=== PATIENT | female | born 1960 | race Caucasian/White ===

== ENCOUNTER 2016-06-01 05:53 | Emergency (ER) | payer MEDICAID ==
--- NOTE | 2016-06-01 06:22 | EDM.PDOC ---
ED HPI GI/ABDOMINAL - General Chief Complaint: Abdominal Pain Stated Complaint: PAIN ON RIGHT SIDE Time Seen by Provider: 06/01/16 06:12 - History of Present Illness INITIAL COMMENTS - FREE TEXT/NARRATIVE: 56-year-old female presents with right lower quadrant pain. She's had similar pain like this in the past she thought was perhaps due to a right ovarian cyst. Patient does significant history of cervical cancer she's thought to be in remission she's had radiation implants done. She was seen here this March for a similar complaint. She had an episode of vomiting one time last night. Denies significant abdominal discomfort no diarrhea no constipation. She denies burning or frequency with urination. She did have an ultrasound she recalls from her last visit. 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: Reports: , Other (see below) Other OB/BYN History: cervical cancer Musculoskeletal History: Reports: Arthritis, Other (see below) Other Musculoskeletal History: carpal tunnel Oncologic (Cancer) History: Reports: Cervix Social & Family History - Family History Family Medical History: Noncontributory - Tobacco Use Smoking Status *Q: Current Every Day Smoker Years of Tobacco use: 20 Packs/Tins Daily: 0.5 - Caffeine Use Caffeine Use: Reports: None - Recreational Drug Use Recreational Drug Use: No - Living Situation & Occupation Living situation: Reports: single Occupation: unemployed ED ROS GENERAL - Review of Systems Review Of Systems: See Below Constitutional: Reports: no symptoms. Denies: fever, chills HEENT: Reports: No symptoms Respiratory: Reports: No Symptoms Cardiovascular: Reports: No symptoms GI/Abdominal: Reports: Abdominal pain, Vomiting (Single episode). Denies: Constipation, Diarrhea, Nausea : Reports: no symptoms ED EXAM, GI/ABD - Physical Exam Exam: See Below Exam Limited By: No limitations General Appearance: alert, no apparent distress Head: atraumatic, normocephalic Neck: normal inspection. No: lymphadenopathy (L), lymphadenopathy (R) Respiratory/Chest: no respiratory distress, lungs clear, normal breath sounds Cardiovascular: regular rate, rhythm, no edema, no murmur GI/Abdominal: normal bowel sounds, soft, non tender, no organomegaly, no distention, other (Chaperoned exam: The patient does not have any discomfort over femoral triangle no evidence of hernia her pain seems to be anterior to the pubic symphysis just to the right side there is no palpable cyst or other structures present but this reproduces her pain.). No: guarding, rebound, rigidity Back Exam: normal inspection. No: CVA tenderness (L), CVA tenderness (R), muscle spasm, paraspinal tenderness, vertebral tenderness Extremities: normal inspection, normal range of motion, non-tender, no pedal edema, other (Attention was paid to her right hip no pain with internal or external rotation flexion or extension or movement against resistance.) Course - Vital Signs Last Recorded V/S: Last Vital Signs Temp 35.6 C 06/01/16 06:00 Pulse 100 06/01/16 06:00 Resp 16 06/01/16 06:00 BP 166/102 H 06/01/16 06:00 Pulse Ox 96 06/01/16 06:00 - Orders/Labs/Meds Orders: Active Orders 24 hr Category Date Time Status Ketorolac [Toradol] Med 06/01/16 07:30 Active 30 mg IVPUSH ONETIME Medication Orders Ketorolac Tromethamine (Toradol) 30 mg IVPUSH ONETIME EVELINA Last Admin: 06/01/16 07:23 Dose: 30 mg Labs: Laboratory Tests 06/01/16 Range/Units 06:45 Urine Color Yellow (Yellow) Urine Appearance Clear (Clear) Urine pH 6.0 (5.0-8.0) Ur Specific [place] > or = 1.030 (1.005-1.030) Urine Protein Trace H (Negative) Urine Glucose (UA) Negative (Negative) Urine Ketones Negative (Negative) Urine Occult Blood Negative (Negative) Urine Nitrite Negative (Negative) Urine Bilirubin Negative (Negative) Urine Urobilinogen 0.2 (0.2-1.0) Ur Leukocyte Esterase Negative (Negative) Urine RBC Not seen (0-5) /hpf Urine WBC 0-5 (0-5) /hpf Ur Epithelial Cells 0-5 (0-5) /hpf Urine Bacteria Few (FEW) /hpf Urine Mucus Many H (FEW) /hpf Meds: Medications Generic Name Dose Route Start Last Admin Trade Name Franci PRN Reason Stop Dose Admin Ketorolac Tromethamine 30 mg 06/01/16 07:30 06/01/16 07:23 Toradol IVPUSH 30 mg ONETIME EVELINA Administration Discontinued Medications Generic Name Dose Route Start Last Admin Trade Name Franci PRN Reason Stop Dose Admin Hydromorphone HCl 0.5 mg 06/01/16 07:17 Dilaudid IVPUSH 06/01/16 07:18 ONETIME ONE - Re-Assessments/Exams Free Text/Narrative Re-Assessment/Exam: 06/01/16 07:05 I suspect her pain is probably related to post radiation effect but it's hard to be certain I did review her ultrasound from her last visit but doesn't contribute much to this pain complex she did have a lot of endocervical fluid patient is not having problems with discharge at this point area she has followup with her oncologist in the near future. Her pain is acting very muscle skeletal however I cannot elicit it with internal or external rotation of the hip flexion extension of the leg abduction or adduction against resistance. 06/01/16 07:37 Urinalysis is unremarkable. Patient will be discharged she did receive a dose of Toradol here and will get a prescription for Percocet to use at home. Departure - Departure Time of Disposition: 07:06 Disposition: Home, Self-Care 01 Clinical Impression: Abdominal wall pain in right lower quadrant Prescriptions: Acetaminophen/oxyCODONE [Percocet 325-5 MG] 1 tab PO Q6H PRN #15 tablet PRN Reason: Pain Referrals: PCP,None [Primary Care Provider] - Forms: ED Department Discharge Additional Instructions: Return to emergency room with any questions or problems. Followup with your oncology doctors as scheduled. Return to the emergency room with any worsening discomfort or pain that is not improving
[2016-06-01] MEDS ORDERED: HYDROmorphone 0.5 MG/0.5 ML Syringe IVPUSH ONE (07:17)
[2016-06-01] MEDS ORDERED: Ketorolac 30 MG/ML SDV IVPUSH SCH (07:30)
[2016-06-01 07:56] VITALS: BP 153/91
== END 2016-06-01 07:53 | disposition home or self-care (01) ==
LOC: JD.ED 05:53
DX: R10.31 Right lower quadrant pain (principal); M19.90 Unspecified osteoarthritis, unspecified site; J45.909 Unspecified asthma, uncomplicated; F17.210 Nicotine dependence, cigarettes, uncomplicated
CPT/HCPCS: 81001; 96374; 99284; J1885

== ENCOUNTER 2016-06-26 10:29 | Emergency (ER) | payer MEDICAID ==
[2016-06-26 10:45] VITALS: BP 147/95
[2016-06-26] MEDS ORDERED: Ketorolac 60 MG/2 ML SDV IM ONE (11:27)
--- NOTE | 2016-06-26 11:28 | EDM.PDOC ---
ED HPI GENERAL MEDICAL PROBLEM - General Chief Complaint: Abdominal Pain Stated Complaint: ABDOMINAL PAIN Time Seen by Provider: 06/26/16 11:28 Source of Information: Reports: Patient History Limitations: Reports: No Limitations - History of Present Illness INITIAL COMMENTS - FREE TEXT/NARRATIVE: 56-year-old female presents for evaluation and treatment of pelvic pain. Reports that she's had pain on and off for several months. She has been seen in the ER on several occasions for her pelvic pain. Reports that this current episode of pain began on Sunday. Has progressively worsened. She has tried over- the-counter medications without any symptom relief. Patient reports that she was found to have a cyst on her right ovary on CT at her last doctor visit about 3 weeks ago. She states that this pain feels similar. Current symptoms include pelvic pain, lower abdominal pain, chills and an episode of vomiting. She denies any fevers, diarrhea, dysuria, hematuria, change in urine odor or color. Patient reports she has not slept for the past few days due to the pain. She did drive herself to the ER today. The patient has a past medical history of cervical cancer as well as ovarian cyst. She last saw her oncologist, Dr. Hernández, in [place] 3 weeks ago. Reports she had CT done which showed a cyst on the right side. 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: , Other (See Below) Other OB/BYN History: ovarian cysts Musculoskeletal History: Reports: Arthritis, Other (See Below) Other Musculoskeletal History: carpal tunnel Oncologic (Cancer) History: Reports: Cervix Social & Family History - Family History Family Medical History: Noncontributory - Tobacco Use Smoking Status *Q: Current Some Day Smoker Years of Tobacco use: 30 Packs/Tins Daily: 0.2 - Caffeine Use Caffeine Use: Reports: Soda, Tea - Recreational Drug Use Recreational Drug Use: No - Living Situation & Occupation Living situation: Reports: Single Occupation: Unemployed ED ROS GENERAL - Review of Systems Review Of Systems: See Below Constitutional: Reports: Chills. Denies: Fever GI/Abdominal: Reports: Abdominal Pain (lower abdomen), Nausea, Vomiting (x 1 episode). Denies: Diarrhea : Reports: Pain (pelvic pain). Denies: Dysuria, Hematuria ED EXAM, RENAL/ - Physical Exam Exam: See Below Exam Limited By: No Limitations General Appearance: Alert, WD/WN, No Apparent Distress Respiratory/Chest: No Respiratory Distress, Lungs Clear, Normal Breath Sounds Cardiovascular: Normal Peripheral Pulses, Regular Rate, Rhythm, No Murmur GI/Abdominal: Normal Bowel Sounds, Soft, Non-Tender Neurological: Alert, Oriented, Normal Cognition Psychiatric: Normal Affect, Normal Mood Skin Exam: Warm, Dry, Normal Color Course - Vital Signs Last Recorded V/S: Last Vital Signs Temp 36.4 C 06/26/16 10:40 Pulse 92 06/26/16 10:40 Resp 18 06/26/16 10:40 BP 147/95 H 06/26/16 10:40 Pulse Ox 97 06/26/16 10:40 - Orders/Labs/Meds Labs: Laboratory Tests 06/26/16 Range/Units 13:22 Urine Color Yellow (Yellow) Urine Appearance Slt cloudy H (Clear) Urine pH 7.0 (5.0-8.0) Ur Specific [place] 1.025 (1.005-1.030) Urine Protein 1+ H (Negative) Urine Glucose (UA) Negative (Negative) Urine Ketones Trace H (Negative) Urine Occult Blood Negative (Negative) Urine Nitrite Negative (Negative) Urine Bilirubin Negative (Negative) Urine Urobilinogen 0.2 (0.2-1.0) Ur Leukocyte Esterase Negative (Negative) Urine RBC Not seen (0-5) /hpf Urine WBC 0-5 (0-5) /hpf Ur Epithelial Cells 0-5 (0-5) /hpf Urine Bacteria Few (FEW) /hpf Urine Mucus Many H (FEW) /hpf Meds: Medications Discontinued Medications Generic Name Dose Route Start Last Admin Trade Name Freq PRN Reason Stop Dose Admin Ketorolac Tromethamine 60 mg 06/26/16 11:27 06/26/16 11:47 Toradol IM 06/26/16 11:28 60 mg ONETIME ONE Administration - Re-Assessments/Exams Free Text/Narrative Re-Assessment/Exam: 06/26/16 11:39 Toradol ordered for pain relief the patient drove herself here. We will put a urine sample. Will attempt to get records from [facility] to further evaluate the chief complaint. 06/30/16 14:12 The patient was unable to give us a urine sample which shows 1+ protein trace ketones. Negative for leukocytes and nitrates. We are unsuccessful in obtaining records from [place]. At this point patient would like to go home. I will give her some medication for pain. She is to follow up with her NON MORSE INTERCEPT TECHNICIAN provider and oncologist for further care. Discharge instructions as documented. Departure - Departure Time of Disposition: 14:17 Disposition: Home, Self-Care 01 Condition: fair Clinical Impression: Fibroid, uterine, Ovarian cyst - Discharge Information Prescriptions: Hydrocodone/Acetaminophen [[place] 5-325] 1 tab PO Q4H PRN #15 tablet PRN Reason: Pain (Severe 7-10) Instructions: Uterine Fibroids, [id number], Ovarian Cyst, [id number] Referrals: PCP,None [Primary Care Provider] - Forms: ED Department Discharge Additional Instructions: norco 1 tab PO every 6 hours prn severe pain. OTC ibuprofen 600mg every 6 hours prn pain. norco can be habit forming, I recommend you take as few of these as needed to control your pain. Do not drive or operate machinery within 12 hours of taking norco. Follow-up with Ob provider in 1-2 weeks so sooner if your require pain management of your symptoms. Rest. Please return to the ER should your symptoms change or worsen.
== END 2016-06-26 14:40 | disposition home or self-care (01) ==
LOC: JD.ED 10:29
DX: D25.9 Leiomyoma of uterus, unspecified (principal); N83.209 Unspecified ovarian cyst, unspecified side; F17.210 Nicotine dependence, cigarettes, uncomplicated; Z79.899 Other long term (current) drug therapy
CPT/HCPCS: 81001; 96372; 99284; J1885; 99283

== ENCOUNTER 2016-08-09 13:29 | Emergency (ER) | payer MEDICAID ==
[2016-08-09 14:14] VITALS: BP 157/97
--- NOTE | 2016-08-09 15:00 | EDM.PDOC ---
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 Patient reports she awoke this morning with the discomfort and it has progressively worsened throughout the day. Reports associated symptoms of increased urinary frequency and dysuria. She described the pain like" labor contractions". No fevers, chills, vaginal discharge, vaginal bleeding, vomiting , diarrhea or hematuria. Patient has not taken anything for her pain thus far. Patient has a past medical history of cervical cancer. Currently in remission. She sees an ob and oncologist in [place] every 3 months. Patient reports she has never had a UTI before. Onset: Today, Sudden Location: Reports: Pelvis Vaginal Pain Score (Numeric/FACES): 7 - Related Data Allergies Allergy/AdvReac Type Severity Reaction Status Date / Time No Known Allergies Allergy Verified 08/09/16 14:08 Home Meds: Home Meds Albuterol [IJD: Ventolin HFA] 1 puff INH .TWICE DAILY PRN 11/24/15 [History] Acetaminophen/oxyCODONE [Percocet 325-5 MG] 1 tab PO Q6H PRN #15 tablet [Rx] Hydrocodone/Acetaminophen [[place] 5-325] 1 tab PO Q4H PRN #15 tablet 06/26/16 [Rx ] Nitrofurantoin Monohyd/M-Cryst [Macrobid 100 mg Capsule] 100 mg PO BID #14 capsule 08/09/16 [Rx] Phenazopyridine HCl [Pyridium] 100 mg PO TID #9 tablet 08/09/16 [Rx] Past Medical History Respiratory History: Reports: Asthma 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: , Other (See Below) Other OB/BYN History: ovarian cysts Musculoskeletal History: Reports: Arthritis, Other (See Below) Other Musculoskeletal History: carpal tunnel Oncologic (Cancer) History: Reports: Cervix Social & Family History - Family History Family Medical History: Noncontributory - Tobacco Use Smoking Status *Q: Current Some Day Smoker Years of Tobacco use: 30 Packs/Tins Daily: 0.2 - Caffeine Use Caffeine Use: Reports: Soda, Tea - Recreational Drug Use Recreational Drug Use: No - Living Situation & Occupation Living situation: Reports: Single Occupation: Unemployed ED ROS GENERAL - Review of Systems Review Of Systems: See Below Constitutional: Denies: Fever GI/Abdominal: Reports: Abdominal Pain (suprapubic pain), Nausea. Denies: Constipation, Diarrhea, Vomiting : Reports: Dysuria, Pain (reports vaginal pain; ), Other (no vaginal bleeding or vaginal discharge). Denies: Hematuria ED EXAM, RENAL/ - Physical Exam Exam: See Below Exam Limited By: No Limitations General Appearance: Alert, WD/WN, Mild Distress Throat/Mouth: Normal Inspection, Normal Lips, No Airway Compromise Respiratory/Chest: No Respiratory Distress, Lungs Clear, Normal Breath Sounds Cardiovascular: Normal Peripheral Pulses, Regular Rate, Rhythm, No Murmur GI/Abdominal: Normal Bowel Sounds, Soft, Tender (suprapubic tenderness) Neurological: Alert, Oriented, Normal Cognition, Normal Gait Psychiatric: Normal Affect, Normal Mood Skin Exam: Warm, Dry, Normal Color Course - Vital Signs Last Recorded V/S: Last Vital Signs Temp 36.6 C 08/09/16 14:08 Pulse 99 08/09/16 14:08 Resp 16 08/09/16 14:08 BP 157/97 H 08/09/16 14:08 Pulse Ox 97 08/09/16 14:08 - Orders/Labs/Meds Labs: Laboratory Tests 08/09/16 Range/Units 14:49 Urine Color Yellow (Yellow) Urine Appearance Cloudy H (Clear) Urine pH 6.0 (5.0-8.0) Ur Specific [place] > or = 1.030 (1.005-1.030) Urine Protein 1+ H (Negative) Urine Glucose (UA) Negative (Negative) Urine Ketones Negative (Negative) Urine Occult Blood 2+ H (Negative) Urine Nitrite Negative (Negative) Urine Bilirubin Negative (Negative) Urine Urobilinogen 0.2 (0.2-1.0) Ur Leukocyte Esterase Negative (Negative) Urine RBC 0-5 (0-5) /hpf Urine WBC 0-5 (0-5) /hpf Ur Epithelial Cells Not seen (0-5) /hpf Amorphous Sediment Many H (NOT SEEN) /hpf Urine Bacteria Few (FEW) /hpf Urine Mucus Not seen (FEW) /hpf Meds: Medications Discontinued Medications Generic Name Dose Route Start Last Admin Trade Name Franci PRN Reason Stop Dose Admin Ketorolac Tromethamine 60 mg 08/09/16 15:28 08/09/16 15:41 Toradol IM 08/09/16 15:29 60 mg ONETIME ONE Administration - Re-Assessments/Exams Free Text/Narrative Re-Assessment/Exam: 08/09/16 16:00 I reviewed the UA with the patient. Pain is worsening so I ordered IM toradol. UA is not impressive for UTI however the patient is symptomatic. Urine sent for culture. Will treat for UTI based on symptoms. Discharge instructions as documented. Departure - Departure Time of Disposition: 16:01 Disposition: Home, Self-Care 01 Condition: Fair Clinical Impression: Urinary tract infection - Discharge Information Prescriptions: Nitrofurantoin Monohyd/M-Cryst [Macrobid 100 mg Capsule] 100 mg PO BID #14 capsule Phenazopyridine HCl [Pyridium] 100 mg PO TID #9 tablet Instructions: Urinary Tract Infection, Adult Referrals: PCP,Not In Area [Primary Care Provider] - Forms: ED Department Discharge Additional Instructions: Take the Macrobid as prescribed. 1 tab twice a day for 7 days. Pyridium 1 tab 3 times a day for 3 days. This is for your pain with urination. take [id number] Tylenol or Motrin as needed. Rest. make sure your are drinking plenty of fluids. Follow-up with family medicine if you're not better in 1 week. Please return the ER if your symptoms change or worsen.
[2016-08-09] MEDS ORDERED: Ketorolac 60 MG/2 ML SDV IM ONE (15:28)
== END 2016-08-09 16:20 | disposition home or self-care (01) ==
LOC: JD.ED 13:29
DX: N39.0 Urinary tract infection, site not specified (principal); F17.210 Nicotine dependence, cigarettes, uncomplicated; M19.90 Unspecified osteoarthritis, unspecified site; J45.909 Unspecified asthma, uncomplicated; Z85.41 Personal history of malignant neoplasm of cervix uteri; Z79.899 Other long term (current) drug therapy
CPT/HCPCS: 81001; 87086; 96372; 99283; J1885

== ENCOUNTER 2017-05-09 12:05 | Emergency (ER) | payer MEDICAID ==
[2017-05-09 12:13] VITALS: BP 151/95
[2017-05-09] MEDS ORDERED: Aspirin 81 MG Tab.Chew PO ONE (12:32)
[2017-05-09] MEDS ORDERED: Sodium Chloride 0.9% 10 ML Syringe FLUSH PRN (12:32)
--- NOTE | 2017-05-09 13:33 | CR ---
Chest: Portable view of the chest was obtained. Comparison: No previous chest x-ray. Heart is slightly enlarged. Tortuous thoracic aorta is seen. Lungs are clear. Bony structures are grossly intact. Impression: 1. Slight cardiomegaly. Nothing acute is seen on portable chest x-ray. Diagnostic code #2
--- NOTE | 2017-05-09 13:56 | EDM.PDOC ---
ED HPI GENERAL MEDICAL PROBLEM - General Chief Complaint: Chest Pain Stated Complaint: CHEST PAIN Time Seen by Provider: 05/09/17 12:26 Source of Information: Reports: Patient History Limitations: Reports: No Limitations - History of Present Illness INITIAL COMMENTS - FREE TEXT/NARRATIVE: 57-year-old female presents for evaluation and treatment of chest pain. Patient identifies chest pain in the center of her chest that radiates into her middle back. States it started about 30 minutes prior to arrival in the ER. States that it was more of a pressure. Currently pain is 3 out of 10. At its worst pain was a 6 out of 10. No treatments prior to arrival in the ER. No pain radiating to the neck or arms. She denies any nausea, vomiting, fevers, chills, lightheadedness, dizziness, shortness of breath, syncope, pain or swelling in her legs. Patient reports that she has been ill with the cold recently, cough is improving. Patient is a current every day smoker. Smokes about half pack a day and has done so for the last 20 years. No history of diabetes. No cardiac history including no previous MIs or arrhythmias. 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: , Other (See Below) Other OB/BYN History: ovarian cysts Musculoskeletal History: Reports: Arthritis, Other (See Below) Other Musculoskeletal History: carpal tunnel Oncologic (Cancer) History: Reports: Cervix Social & Family History - Family History Family Medical History: Noncontributory - Tobacco Use Smoking Status *Q: Current Every Day Smoker Years of Tobacco use: 25 Packs/Tins Daily: 0.5 - Caffeine Use Caffeine Use: Reports: Coffee - Recreational Drug Use Recreational Drug Use: Yes Drug Use in Last 12 Months: Yes Recreational Drug Type: Reports: Marijuana/Hashish Recreational Drug Use Frequency: Monthly - Living Situation & Occupation Living situation: Reports: Single Occupation: Unemployed ED ROS GENERAL - Review of Systems Review Of Systems: See Below Constitutional: Denies: Fever, Chills HEENT: Denies: Ear Pain, Throat Pain Respiratory: Reports: Cough. Denies: Shortness of Breath Cardiovascular: Reports: Chest Pain. Denies: Edema, Lightheadedness, Syncope GI/Abdominal: Denies: Abdominal Pain, Nausea, Vomiting Musculoskeletal: Reports: Back Pain. Denies: Neck Pain, Arm Pain Neurological: Denies: Syncope ED EXAM, GENERAL - Physical Exam Exam: See Below Exam Limited By: No Limitations General Appearance: Alert, WD/WN, No Apparent Distress Eye Exam: Bilateral Eye: Normal Inspection Ears: Normal External Exam Nose: Normal Inspection Throat/Mouth: Normal Inspection, Normal Lips, Normal Voice, No Airway Compromise Respiratory/Chest: No Respiratory Distress, Lungs Clear, Normal Breath Sounds Cardiovascular: Normal Peripheral Pulses, Regular Rate, Rhythm, No Murmur GI/Abdominal: Soft, Non-Tender Neurological: Alert, Oriented, Normal Cognition Psychiatric: Normal Affect, Normal Mood Skin Exam: Warm, Dry, Normal Color EKG INTERPRETATION EKG Date: 05/09/17 Time: 12:15 Rhythm: NSR Rate (Beats/Min): 80 [place]: Normal P-Wave: Present QRS: Normal ST-T: Normal QT: Normal EKG Interpretation Comments: NSR at 80 bpm. No acute changes. Reviewed by myself and Dr. Guzman. Course - Vital Signs Last Recorded V/S: Last Vital Signs Temp 36.2 C 05/09/17 12:09 Pulse 83 05/09/17 12:09 Resp 18 05/09/17 12:09 BP 151/95 H 05/09/17 12:09 Pulse Ox 98 05/09/17 12:09 - Orders/Labs/Meds Orders: Active Orders 24 hr Category Date Time Status Cardiac Monitoring [RC] . DIRECTED Care 05/09/17 12:32 Active EKG 12 Lead [EKG Documentation Completion] [RC] STAT Care 05/09/17 12:36 Active Peripheral IV Care [RC] . DIRECTED Care 05/09/17 12:32 Active Peripheral IV Insertion Adult [OM.PC] Routine Oth 05/09/17 12:31 Ordered Labs: Laboratory Tests 05/09/17 05/09/17 05/09/17 Range/Units 12:15 12:15 12:15 WBC 5.06 (3.98-10.04) K/mm3 RBC 5.29 H (3.98-5.22) M/mm3 Hgb 15.0 (11.2-15.7) gm/L Hct 46.3 H (34.1-44.9) % MCV 87.5 (79.4-94.8) fl MCH 28.4 (25.6-32.2) pg MCHC 32.4 (32.2-35.5) g/dl RDW Std Deviation 45.0 (36.4-46.3) fL Plt Count 244 (182-369) K/mm3 MPV 9.2 L (9.4-12.3) fl Neut % (Auto) 62.0 (34.0-71.1) % Lymph % (Auto) 28.5 (19.3-51.7) % [place] % (Auto) 7.1 (4.7-12.5) % Eos % (Auto) 1.8 (0.7-5.8) Baso % (Auto) 0.4 (0.1-1.2) % Neut # (Auto) 3.14 (1.56-6.13) K/mm3 Lymph # (Auto) 1.44 (1.18-3.74) K/mm3 [place] # (Auto) 0.36 (0.24-0.36) K/mm3 Eos # (Auto) 0.09 (0.04-0.36) K/mm3 Baso # (Auto) 0.02 (0.01-0.08) K/mm3 PT 10.0 (8.0-13.0) SECONDS INR 0.94 APTT 31 (22-36) SECONDS Sodium 144 (136-145) mEq/L Potassium 3.9 (3.5-5.1) mEq/L Chloride 105 (98-107) mEq/L Carbon Dioxide 28 (21-32) mEq/L Anion Gap 14.9 (5-15) BUN 10 (7-18) mg/dL Creatinine 0.7 (0.55-1.02) mg/dL Est Cr Clr Drug Dosing 81.71 mL/min Estimated GFR (MDRD) > 60 (>60) mL/min BUN/Creatinine Ratio 14.3 (14-18) Glucose 96 (74-106) mg/dL Calcium 8.9 (8.5-10.1) mg/dL Total Bilirubin 0.2 (0.2-1.0) mg/dL AST 18 (15-37) U/L ALT 21 (14-59) U/L Alkaline Phosphatase 95 (46-116) U/L Troponin I < 0.017 (0.00-0.056) ng/mL Total Protein 7.2 (6.4-8.2) g/dl Albumin 3.5 (3.4-5.0) g/dl Globulin 3.7 gm/dL Albumin/Globulin Ratio 1.0 (1-2) Lipase 171 (73-393) U/L 05/09/17 Range/Units 15:01 WBC (3.98-10.04) K/mm3 RBC (3.98-5.22) M/mm3 Hgb (11.2-15.7) gm/L Hct (34.1-44.9) % MCV (79.4-94.8) fl MCH (25.6-32.2) pg MCHC (32.2-35.5) g/dl RDW Std Deviation (36.4-46.3) fL Plt Count (182-369) K/mm3 MPV (9.4-12.3) fl Neut % (Auto) (34.0-71.1) % Lymph % (Auto) (19.3-51.7) % [place] % (Auto) (4.7-12.5) % Eos % (Auto) (0.7-5.8) Baso % (Auto) (0.1-1.2) % Neut # (Auto) (1.56-6.13) K/mm3 Lymph # (Auto) (1.18-3.74) K/mm3 [place] # (Auto) (0.24-0.36) K/mm3 Eos # (Auto) (0.04-0.36) K/mm3 Baso # (Auto) (0.01-0.08) K/mm3 PT (8.0-13.0) SECONDS INR APTT (22-36) SECONDS Sodium (136-145) mEq/L Potassium (3.5-5.1) mEq/L Chloride (98-107) mEq/L Carbon Dioxide (21-32) mEq/L Anion Gap (5-15) BUN (7-18) mg/dL Creatinine (0.55-1.02) mg/dL Est Cr Clr Drug Dosing mL/min Estimated GFR (MDRD) (>60) mL/min BUN/Creatinine Ratio (14-18) Glucose (74-106) mg/dL Calcium (8.5-10.1) mg/dL Total Bilirubin (0.2-1.0) mg/dL AST (15-37) U/L ALT (14-59) U/L Alkaline Phosphatase (46-116) U/L Troponin I < 0.017 (0.00-0.056) ng/mL Total Protein (6.4-8.2) g/dl Albumin (3.4-5.0) g/dl Globulin gm/dL Albumin/Globulin Ratio (1-2) Lipase (73-393) U/L Meds: Medications Discontinued Medications Generic Name Dose Route Start Last Admin Trade Name Freq PRN Reason Stop Dose Admin Aspirin 324 mg 05/09/17 12:32 05/09/17 13:18 Aspirin PO 05/09/17 12:33 324 mg ONETIME ONE Administration Sodium Chloride 10 ml 05/09/17 12:32 05/09/17 13:19 Saline Flush FLUSH 10 ml ASDIRECTED PRN Administration Keep Vein Open - Radiology Interpretation Free Text/Narrative:: Chest: Portable view of the chest was obtained. Comparison: No previous chest x-ray. Heart is slightly enlarged. Tortuous thoracic aorta is seen. Lungs are clear. Bony structures are grossly intact. Impression: 1. Slight cardiomegaly. Nothing acute is seen on portable chest x-ray. - Re-Assessments/Exams Free Text/Narrative Re-Assessment/Exam: 05/09/17 14:29 Patient was offered something for pain upon arrival the ER but she declined. I reviewed the labs, imaging and EKG with the patient. Plan will be to repeat the troponin about one hour to do a 3 hour troponin and no will send her home if the trop remains normal. Patient is currently resting comfortably. Denies any current chest pain. 05/09/17 16:03 Repeat troponin is negative at less than 0.017. Patient denies any chest pain since entering the ER. She has I refilled her Ambian as well as her albuterol inhaler Will give 5 5 mg Ambien and albuterol inhaler. Instructed to follow-up with family medicine for further refills. Instructed to follow-up family medicine within 2 weeks for recheck us also discussed the stress test. Departure - Departure Time of Disposition: 16:04 Disposition: Home, Self-Care 01 Condition: Good Clinical Impression: Chest pain, atypical Prescriptions: Albuterol [IJD: Ventolin HFA] 2 puff INH .TWICE DAILY #18 gm Zolpidem Tartrate [Ambien] 5 mg PO BEDTIME PRN #10 tablet PRN Reason: Insomnia Instructions: Nonspecific Chest Pain, [id number] Referrals: PCP,None [Primary Care Provider] - Radha Spivey MD [Physician] - Forms: ED Department Discharge Additional Instructions: Take the Ambien as prescribed. 1 tab about an hour prior to bedtime as needed for insomnia. Albuterol 1-2 puffs every 4-6 hours as needed for shortness of breath. Rest. Follow-up with family medicine within 2 weeks for recheck of your symptoms also discussed a stress test. Recommend Dr. Spivey at the [facility]. Call [phone] to schedule with her. Please return to ER if your symptoms change or worsen. - My Orders Last 24 Hours: My Active Orders 05/09/17 12:31 Peripheral IV Insertion Adult [OM.PC] Routine 05/09/17 12:32 Cardiac Monitoring [RC] . DIRECTED Peripheral IV Care [RC] . DIRECTED 05/09/17 12:36 EKG 12 Lead [EKG Documentation Completion] [RC] STAT - Assessment/Plan Last 24 Hours: My Active Orders 05/09/17 12:31 Peripheral IV Insertion Adult [OM.PC] Routine 05/09/17 12:32 Cardiac Monitoring [RC] . DIRECTED Peripheral IV Care [RC] . DIRECTED 05/09/17 12:36 EKG 12 Lead [EKG Documentation Completion] [RC] STAT
== END 2017-05-09 16:46 | disposition home or self-care (01) ==
LOC: JD.ED 12:05
DX: R07.89 Other chest pain (principal); J45.909 Unspecified asthma, uncomplicated; F17.210 Nicotine dependence, cigarettes, uncomplicated; Z79.899 Other long term (current) drug therapy
CPT/HCPCS: 36415; 71045; 80053; 83690; 84484; 85025; 85610; 85730; 93005; 99285; A9270; J7050; 99283

== ENCOUNTER 2018-10-08 08:33 | Emergency (ER) | payer MEDICAID ==
[2018-10-08 08:53] VITALS: BP 145/90
--- NOTE | 2018-10-08 10:26 | EDM.PDOC ---
ED HPI GENERAL MEDICAL PROBLEM - General Chief Complaint: Abdominal Pain Stated Complaint: SHARP PAINS IN ABDOMEN Time Seen by Provider: 10/08/18 08:50 Source of Information: Reports: Patient History Limitations: Reports: No Limitations - History of Present Illness INITIAL COMMENTS - FREE TEXT/NARRATIVE: The patient presents with abdominal pain and nausea. The nausea has been an ongoing issue for about 6 months. She also has periumbilical abdominal pain that started yesterday. The pain comes and goes. She has no vomiting, diarrhea or dysuria. She has no fever or chills. Onset: Gradual Duration: Day(s): (Yesterday) Location: Reports: Abdomen Quality: Reports: Other (Cramping) Severity: Moderate Improves with: Reports: None Worsens with: Reports: None Associated Symptoms: Reports: No Other Symptoms Left Lower Abdominal Pain Score (Numeric/FACES): 7 - Related Data Allergies Allergy/AdvReac Type Severity Reaction Status Date / Time No Known Allergies Allergy Verified 10/08/18 08:53 Home Meds: Home Meds Albuterol [IJD: Ventolin HFA] 1 puff INH .TWICE DAILY PRN 11/24/15 [History] Ondansetron [Zofran ODT] 4 mg PO Q6H PRN #20 tab.dis 10/08/18 [Rx] Past Medical History HEENT History: Reports: None Cardiovascular History: Reports: None Respiratory History: Reports: Asthma Gastrointestinal History: Reports: None [employer]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 History: Reports: , Other (See Below) Other 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 History: ovarian cysts Musculoskeletal History: Reports: Arthritis, Other (See Below) Other Musculoskeletal History: carpal tunnel Neurological History: Reports: None Psychiatric History: Reports: None Endocrine/Metabolic History: Reports: None Hematologic History: Reports: None Oncologic (Cancer) History: Reports: Cervix Dermatologic History: Reports: None - Infectious Disease History Infectious Disease History: Reports: None - Past Surgical History HEENT Surgical History: Reports: None Other Female Surgeries/Procedures: rods placed for cervical cancer. Radiation Social & Family History - Family History Family Medical History: Noncontributory - Tobacco Use Smoking Status *Q: Current Every Day Smoker Years of Tobacco use: 18 Packs/Tins Daily: 0.5 - Caffeine Use Caffeine Use: Reports: Coffee, Soda - Recreational Drug Use Recreational Drug Use: No - Living Situation & Occupation Living situation: Reports: Single Occupation: Unemployed ED ROS GENERAL - Review of Systems Review Of Systems: See Below Constitutional: Reports: No Symptoms HEENT: Reports: No Symptoms Respiratory: Reports: No Symptoms Cardiovascular: Reports: No Symptoms Endocrine: Reports: No Symptoms GI/Abdominal: Reports: Abdominal Pain, Nausea. Denies: Diarrhea, Vomiting : Reports: No Symptoms Musculoskeletal: Reports: No Symptoms Skin: Reports: No Symptoms Neurological: Reports: No Symptoms ED EXAM, GI/ABD - Physical Exam Exam: See Below Exam Limited By: No Limitations General Appearance: Alert, No Apparent Distress Ears: Normal External Exam Nose: Normal Inspection Head: Atraumatic, Normocephalic Neck: Normal Inspection Respiratory/Chest: No Respiratory Distress, Lungs Clear, Normal Breath Sounds Cardiovascular: Regular Rate, Rhythm, No Edema, No Murmur GI/Abdominal Exam: Soft, Non-Tender, No Organomegaly, No Mass Back Exam: Normal Inspection Extremities: Normal Inspection Course - Vital Signs Last Recorded V/S: Last Vital Signs Temp 96.9 F 10/08/18 08:47 Pulse 101 H 10/08/18 08:47 Resp 18 10/08/18 08:47 BP 145/90 H 10/08/18 08:47 Pulse Ox 97 10/08/18 08:47 - Orders/Labs/Meds Orders: Active Orders 24 hr Category Date Time Status UA W/MICROSCOPIC [URIN] Stat Lab 10/08/18 10:00 Results Labs: Laboratory Tests 10/08/18 10/08/18 10/08/18 Range/Units 09:46 09:46 10:00 WBC 6.70 (3.98-10.04) K/mm3 RBC 5.30 H (3.98-5.22) M/mm3 Hgb 15.0 (11.2-15.7) gm/L Hct 45.9 H (34.1-44.9) % MCV 86.6 (79.4-94.8) fl MCH 28.3 (25.6-32.2) pg MCHC 32.7 (32.2-35.5) g/dl RDW Std Deviation 46.8 H (36.4-46.3) fL Plt Count 212 (182-369) K/mm3 MPV 9.3 L (9.4-12.3) fl Neut % (Auto) 70.9 (34.0-71.1) % Lymph % (Auto) 21.8 (19.3-51.7) % [place] % (Auto) 5.7 (4.7-12.5) % Eos % (Auto) 1.2 (0.7-5.8) Baso % (Auto) 0.3 (0.1-1.2) % Neut # (Auto) 4.75 (1.56-6.13) K/mm3 Lymph # (Auto) 1.46 (1.18-3.74) K/mm3 [place] # (Auto) 0.38 H (0.24-0.36) K/mm3 Eos # (Auto) 0.08 (0.04-0.36) K/mm3 Baso # (Auto) 0.02 (0.01-0.08) K/mm3 Sodium 138 (136-145) mEq/L Potassium 4.0 (3.5-5.1) mEq/L Chloride 103 (98-107) mEq/L Carbon Dioxide 27 (21-32) mEq/L Anion Gap 12.0 (5-15) BUN 13 (7-18) mg/dL Creatinine 0.7 (0.55-1.02) mg/dL Est Cr Clr Drug Dosing 80.75 mL/min Estimated GFR (MDRD) > 60 (>60) mL/min BUN/Creatinine Ratio 18.6 H (14-18) Glucose 112 H (74-106) mg/dL Calcium 8.3 L (8.5-10.1) mg/dL Total Bilirubin 0.3 (0.2-1.0) mg/dL AST 12 L (15-37) U/L ALT 23 (14-59) U/L Alkaline Phosphatase 96 (46-116) U/L Total Protein 6.9 (6.4-8.2) g/dl Albumin 3.1 L (3.4-5.0) g/dl Globulin 3.8 gm/dL Albumin/Globulin Ratio 0.8 L (1-2) Lipase 79 (73-393) U/L Urine Color Yellow (Yellow) Urine Appearance Clear (Clear) Urine pH 5.5 (5.0-8.0) Ur Specific [place] > or = 1.030 (1.005-1.030) Urine Protein Negative (Negative) Urine Glucose (UA) Negative (Negative) Urine Ketones Negative (Negative) Urine Occult Blood Negative (Negative) Urine Nitrite Negative (Negative) Urine Bilirubin Negative (Negative) Urine Urobilinogen 0.2 (0.2-1.0) Ur Leukocyte Esterase Negative (Negative) - Re-Assessments/Exams Free Text/Narrative Re-Assessment/Exam: 10/08/18 10:28 I ordered labs and a UA. Her CBC and CMP look good. His lipase is normal. His UA shows no UTI. 10/08/18 10:30 She had asked about chlamydia infection. She has no discharge or pelvic pain and she has not had intercourse for months. I doubt this is causing any problems. I will discharge her home. Departure - Departure Time of Disposition: 10:35 Disposition: Home, Self-Care 01 Condition: Good Clinical Impression: Gastroenteritis Abdominal pain Qualifiers: Abdominal location: generalized Qualified Code(s): R10.84 - Generalized abdominal pain - Discharge Information *PRESCRIPTION DRUG MONITORING PROGRAM REVIEWED*: No *COPY OF PRESCRIPTION DRUG MONITORING REPORT IN PATIENT PATTI: No Prescriptions: Ondansetron [Zofran ODT] 4 mg PO Q6H PRN #20 tab.dis PRN Reason: Nausea\vomiting Referrals: PCP,None [Primary Care Provider] - Melissa Laura PA-C [Physician Respiratory Care Instructor] - 1 Week Forms: ED Department Discharge, ED Return to Work/School Form Additional Instructions: Drink plenty of fluids. Take zofran every 6 hours as needed for nausea and vomiting. Take tylenol or motrin for any pain. Please return if you are worse. - My Orders Last 24 Hours: My Active Orders 10/08/18 10:00 UA W/MICROSCOPIC [URIN] Stat - Assessment/Plan Last 24 Hours: My Active Orders 10/08/18 10:00 UA W/MICROSCOPIC [URIN] Stat
== END 2018-10-08 10:55 | disposition home or self-care (01) ==
LOC: JD.ED 08:33
DX: K52.9 Noninfective gastroenteritis and colitis, unspecified (principal); J45.909 Unspecified asthma, uncomplicated; F17.210 Nicotine dependence, cigarettes, uncomplicated; Z79.899 Other long term (current) drug therapy
CPT/HCPCS: 36415; 80053; 81001; 83690; 85025; 99284

== ENCOUNTER 2018-10-10 11:16 | Emergency (ER) | payer MEDICAID ==
[2018-10-10] MEDS ORDERED: Ondansetron 4 MG/2 ML SDV IVPUSH ONE (11:24)
[2018-10-10] MEDS ORDERED: Sodium Chloride 0.9% 1,000 ML IV SCH (11:30)
--- NOTE | 2018-10-10 11:56 | EDM.PDOC ---
ED HPI GENERAL MEDICAL PROBLEM - General Chief Complaint: Gastrointestinal Problem Stated Complaint: CONTINUAL EMESIS SINCE LAST VISIT Time Seen by Provider: 10/10/18 11:56 - History of Present Illness INITIAL COMMENTS - FREE TEXT/NARRATIVE: 58-year-old female presents emergency room with nausea and abdominal pain. This is been going on for several days now. Patient was seen here couple of days ago started on Zofran this helps a little bit. She has some vomiting but minimal when she was seen here the other day she was having nausea but no vomiting. She denies any diarrhea or constipation last normal BM was yesterday. Denies fevers or chills but sometimes she may feel a little warm. Patient denies any burning or frequency with urination or any other urinary complaints. She has not noticed any bloody or dark stools. Abdomen Pain Score (Numeric/FACES): 6 - Related Data Allergies Allergy/AdvReac Type Severity Reaction Status Date / Time No Known Allergies Allergy Verified 10/10/18 11:51 Home Meds: Home Meds Albuterol [IJD: Ventolin HFA] 1 puff INH .TWICE DAILY PRN 11/24/15 [History] Ondansetron [Zofran ODT] 4 mg PO Q6H PRN #20 tab.dis 10/08/18 [Rx] Past Medical History HEENT History: Reports: None Cardiovascular History: Reports: None Respiratory History: Reports: Asthma Gastrointestinal History: Reports: None Genitourinary History: Reports: UTI, Recurrent CERTIFIED OPTICIAN History: Reports: , Other (See Below) Other CERTIFIED OPTICIAN History: ovarian cysts Musculoskeletal History: Reports: Arthritis, Other (See Below) Other Musculoskeletal History: carpal tunnel Neurological History: Reports: Headaches, Chronic Psychiatric History: Reports: None Endocrine/Metabolic History: Reports: None Hematologic History: Reports: None Immunologic History: Reports: Other (See Below) Other Immunologic History: chemotherapy in past, cervical cancer. Oncologic (Cancer) History: Reports: Cervix Dermatologic History: Reports: None - Infectious Disease History Infectious Disease History: Reports: Chicken Pox - Past Surgical History Other Female Surgeries/Procedures: rods placed for cervical cancer. Radiation Social & Family History - Family History Family Medical History: Noncontributory - Tobacco Use Smoking Status *Q: Current Every Day Smoker Years of Tobacco use: 20 Packs/Tins Daily: 0.5 - Caffeine Use Caffeine Use: Reports: Coffee, Soda - Recreational Drug Use Recreational Drug Use: No - Living Situation & Occupation Living situation: Reports: Single Occupation: Unemployed ED ROS GENERAL - Review of Systems Review Of Systems: See Below Constitutional: Reports: No Symptoms HEENT: Reports: No Symptoms Respiratory: Reports: No Symptoms, Other (She has asthma but this is doing well) Cardiovascular: Reports: No Symptoms Endocrine: Reports: No Symptoms GI/Abdominal: Reports: Abdominal Pain, Nausea, Vomiting. Denies: Constipation, Diarrhea : Reports: No Symptoms Musculoskeletal: Reports: No Symptoms Skin: Reports: No Symptoms Neurological: Reports: No Symptoms ED EXAM, GI/ABD - Physical Exam Exam: See Below Exam Limited By: No Limitations General Appearance: Alert, No Apparent Distress Head: Atraumatic, Normocephalic Neck: Normal Inspection, Supple, Non-Tender, Full Range of Motion Respiratory/Chest: No Respiratory Distress, Lungs Clear, Other (Slightly decreased breath sounds) Cardiovascular: Regular Rate, Rhythm, No Edema, No Murmur GI/Abdominal Exam: Normal Bowel Sounds, Soft, Other (On examination she's got diffuse tenderness in the entire abdomen except for the right lower quadrant no rigidity rebound or guarding noted he may have minimal to mild distention) Back Exam: Normal Inspection. No: CVA Tenderness (L), CVA Tenderness (R) Extremities: Normal Inspection, Non-Tender, No Pedal Edema Neurological: Alert, Oriented, Normal Cognition Course - Vital Signs Last Recorded V/S: Last Vital Signs Temp 36.1 C 10/10/18 11:23 Pulse 94 10/10/18 11:23 Resp 16 10/10/18 11:23 BP 154/87 H 10/10/18 11:23 Pulse Ox 94 L 10/10/18 11:23 - Orders/Labs/Meds Orders: Active Orders 24 hr Category Date Time Status Abdomen 2V AP Flat Upright [CR] Stat Exams 10/10/18 12:06 Taken Sodium Chloride 0.9% [Normal Saline] 1,000 ml Med 10/10/18 11:30 Active IV ASDIRECTED Medication Orders Sodium Chloride (Normal Saline) 1,000 mls @ 150 mls/hr IV ASDIRECTED EVELINA Last Admin: 10/10/18 12:50 Dose: 150 mls/hr Labs: Laboratory Tests 10/10/18 10/10/18 Range/Units 12:37 12:37 WBC 5.68 (3.98-10.04) K/mm3 RBC 5.35 H (3.98-5.22) M/mm3 Hgb 15.0 (11.2-15.7) gm/L Hct 46.8 H (34.1-44.9) % MCV 87.5 (79.4-94.8) fl MCH 28.0 (25.6-32.2) pg MCHC 32.1 L (32.2-35.5) g/dl RDW Std Deviation 47.2 H (36.4-46.3) fL Plt Count 229 (182-369) K/mm3 MPV 9.5 (9.4-12.3) fl Neut % (Auto) 69.6 (34.0-71.1) % Lymph % (Auto) 21.7 (19.3-51.7) % Dawson % (Auto) 6.2 (4.7-12.5) % Eos % (Auto) 1.9 (0.7-5.8) Baso % (Auto) 0.2 (0.1-1.2) % Neut # (Auto) 3.96 (1.56-6.13) K/mm3 Lymph # (Auto) 1.23 (1.18-3.74) K/mm3 Dawson # (Auto) 0.35 (0.24-0.36) K/mm3 Eos # (Auto) 0.11 (0.04-0.36) K/mm3 Baso # (Auto) 0.01 (0.01-0.08) K/mm3 Sodium 139 (136-145) mEq/L Potassium 4.7 (3.5-5.1) mEq/L Chloride 102 (98-107) mEq/L Carbon Dioxide 29 (21-32) mEq/L Anion Gap 12.7 (5-15) BUN 12 (7-18) mg/dL Creatinine 0.7 (0.55-1.02) mg/dL Est Cr Clr Drug Dosing 80.75 mL/min Estimated GFR (MDRD) > 60 (>60) mL/min BUN/Creatinine Ratio 17.1 (14-18) Glucose 116 H (74-106) mg/dL Calcium 8.9 (8.5-10.1) mg/dL Total Bilirubin 0.2 (0.2-1.0) mg/dL AST 13 L (15-37) U/L ALT 23 (14-59) U/L Alkaline Phosphatase 86 (46-116) U/L C-Reactive Protein 1.6 H* (<1.0) mg/dL Total Protein 6.9 (6.4-8.2) g/dl Albumin 3.2 L (3.4-5.0) g/dl Globulin 3.7 gm/dL Albumin/Globulin Ratio 0.9 L (1-2) Lipase 91 (73-393) U/L Meds: Medications Generic Name Dose Route Start Last Admin Trade Name Freq PRN Reason Stop Dose Admin Sodium Chloride 1,000 mls @ 150 mls/hr 10/10/18 11:30 10/10/18 12:50 Normal Saline IV 150 mls/hr ASDIRECTED EVELINA Administration Discontinued Medications Generic Name Dose Route Start Last Admin Trade Name Freq PRN Reason Stop Dose Admin Ondansetron HCl 4 mg 10/10/18 11:24 10/10/18 12:48 Zofran IVPUSH 10/10/18 11:25 4 mg ONETIME ONE Administration - Re-Assessments/Exams Free Text/Narrative Re-Assessment/Exam: 10/10/18 14:41 Laboratory evaluations really nondiagnostic KUB and upright were done pretty nonspecific she may have an increased stool pattern but she's been having regular BMs daily. We'll try a bottle of mag citrate and have her increase her stool softeners at home. We'll continue with the Zofran and see if the bowel treatment makes a difference in her the patient really would like to go home at this point. Did discuss CT evaluation of think it would be of low yield. The patient agrees and we will not pursue this at this point. Departure - Departure Time of Disposition: 14:42 Disposition: Home, Self-Care 01 Clinical Impression: Nausea & vomiting Abdominal pain Qualifiers: Abdominal location: generalized Qualified Code(s): R10.84 - Generalized abdominal pain - Discharge Information Referrals: PCP,None [Primary Care Provider] - Forms: ED Department Discharge Additional Instructions: Return to the emergency room with any questions problems worsening symptoms. Increase your stool softeners. Drink a bottle of mag citrate when he get home, it goes down better either Cold or served with ice. Follow-up in the clinic on Sunday if needed [phone] - My Orders Last 24 Hours: My Active Orders 10/10/18 11:30 Sodium Chloride 0.9% [Normal Saline] 1,000 ml IV ASDIRECTED 10/10/18 12:06 Abdomen 2V AP Flat Upright [CR] Stat - Assessment/Plan Last 24 Hours: My Active Orders 10/10/18 11:30 Sodium Chloride 0.9% [Normal Saline] 1,000 ml IV ASDIRECTED 10/10/18 12:06 Abdomen 2V AP Flat Upright [CR] Stat
[2018-10-10 14:59] VITALS: BP 124/73
--- NOTE | 2018-10-14 12:52 | CR ---
Abdomen: Supine and upright views of the abdomen were obtained. Comparison: No prior abdominal imaging. Two surgical clips are seen within the pelvis. Bowel gas pattern is normal. Calcification is noted within the left side of the pelvis most likely representing phlebolith. Bony structures are within normal limits. No free air is seen. Impression: 1. Nothing acute is seen on two-view abdominal x-ray. Diagnostic code #2
== END 2018-10-10 15:08 | disposition home or self-care (01) ==
LOC: JD.ED 11:16
DX: R10.84 Generalized abdominal pain (principal); R11.2 Nausea with vomiting, unspecified; J45.909 Unspecified asthma, uncomplicated; F17.210 Nicotine dependence, cigarettes, uncomplicated; Z79.899 Other long term (current) drug therapy
CPT/HCPCS: 36415; 74019; 80053; 83690; 85025; 86140; 96361; 96374; 99284; J2405; J7040

== ENCOUNTER 2021-11-25 01:01 | Inpatient (IN) | payer MEDICAID ==
[2021-11-25] MEDS ORDERED: HYDROmorphone 1 MG/ML Syringe IVPUSH STA (01:28)
[2021-11-25] MEDS ORDERED: Ondansetron 4 MG/2 ML SDV IVPUSH ONE (01:28)
[2021-11-25] MEDS ORDERED: Sodium Chloride 0.9% 1,000 ML IV SCH (01:30)
[2021-11-25] MEDS ORDERED: Iopamidol 612 MG/ML 100 ML Bottle IVPUSH ONE (01:42)
[2021-11-25] MEDS ORDERED: Sodium Chloride 0.9% 1,000 ML IV ONE (03:20)
[2021-11-25] MEDS ORDERED: Ondansetron 4 MG/2 ML SDV IV PRN (05:46)
[2021-11-25] MEDS: NS + KCl 20mEq/L 1,000 ML IV SCH ×2 (06:17→19:09)
[2021-11-25] MEDS ORDERED: Albuterol 6.7 GM Inhaler INH PRN (08:30)
[2021-11-25] MEDS ORDERED: Acetaminophen 325 MG Tab PO ONE (09:07)
[2021-11-25] MEDS: Famotidine 20 MG/2 ML SDV IVPUSH SCH ×2 (09:14→20:23)
[2021-11-25] MEDS: Nicotine 14 MG/24 Hr Patch TRDERM SCH (09:16)
[2021-11-25] MEDS: cefTRIAXone 2 GM in Sodium Chloride 0.9% 100 ML IV SCH (10:46)
[2021-11-25] MEDS: HYDROmorphone 0.5 MG/0.5 ML Syringe IVPUSH PRN ×2 (10:48→19:10)
[2021-11-25] MEDS: metroNIDAZOLE/Normal Saline 500 MG in Premix Bag 1 BAG IV SCH ×2 (11:28→20:43)
[2021-11-26] MEDS: HYDROmorphone 0.5 MG/0.5 ML Syringe IVPUSH PRN (01:50)
[2021-11-26] MEDS: metroNIDAZOLE/Normal Saline 500 MG in Premix Bag 1 BAG IV SCH ×2 (04:16→12:30)
[2021-11-26 04:50] VITALS: BP 144/78
[2021-11-26] MEDS: NS + KCl 20mEq/L 1,000 ML IV SCH (08:33)
[2021-11-26] MEDS: Nicotine 14 MG/24 Hr Patch TRDERM SCH (08:34)
[2021-11-26] MEDS: Famotidine 20 MG/2 ML SDV IVPUSH SCH (08:34)
[2021-11-26] MEDS: cefTRIAXone 2 GM in Sodium Chloride 0.9% 100 ML IV SCH (11:39)
[2021-11-26 14:17] VITALS: PULSE 95
== END 2021-11-26 14:33 | disposition left against medical advice (07) | DRG 389 ==
LOC: JD.ED 01:01 → JD.MS 04:04 → OBSVTOIN 08:39
PROVIDERS: ADMIT Internal Medicine Critical Care Medicine; ATTEND Internal Medicine
DX: K56.600 Partial intestinal obstruction, unspecified as to cause (principal); E87.1 Hypo-osmolality and hyponatremia; K52.9 Noninfective gastroenteritis and colitis, unspecified; K21.9 Gastro-esophageal reflux disease without esophagitis; J45.20 Mild intermittent asthma, uncomplicated; M15.9 Polyosteoarthritis, unspecified; E86.0 Dehydration; Z85.42 Personal history of malignant neoplasm of other parts of uterus; Z87.891 Personal history of nicotine dependence
CPT/HCPCS: 36415; 74177; 74177-26; 80053; 81001; 82947; 83690; 83735; 83930; 83935; 84100; 84300; 85007; 85025; 85027; 85652; 86140; 94761; A9270-GY; J0696; J1170; J2405; J3480; J3490; J7030; Q9967

== ENCOUNTER 2023-09-11 08:52 | Emergency (ER) | payer MEDICAID ==
[2023-09-11] MEDS: Sodium Chloride 0.9% 10 ML Syringe FLUSH PRN (09:36)
[2023-09-11 09:46] LABS: BASOPHILS PERCENT AUTO 0.2 % (0.0-1.0); EOSINOPHILS PERCENT AUTO 0.2 % (0.0-6.0); HEMATOCRIT 48.1 % (37.0-47.0); IMMATURE GRAN ABSOLUTE AUTO 0.04 K/mm3 (0.00-0.05); IMMATURE GRAN PERCENT AUTO 0.8 % (0.0-0.4); LYMPHOCYTES ABSOLUTE AUTO 0.4 K/mm3 (1.0-4.8); LYMPHOCYTES PERCENT AUTO 7.9 % (24.0-44.0); MEAN CORPUSCULAR HEMOGLOBIN 28.2 pg (28.0-32.0); MEAN CORPUSCULAR HGB CONC 33.3 g/dl (32.0-36.0); MEAN CORPUSCULAR VOLUME 84.8 fl (83.0-99.0); MEAN PLATELET VOLUME 9.8 fl (9.4-12.3); MONOCYTES ABSOLUTE AUTO 0.2 K/mm3 (0.0-0.8); MONOCYTES PERCENT AUTO 4.4 % (0.0-8.0); NEUTROPHILS ABSOLUTE AUTO 4.3 K/mm3 (1.8-7.7); NEUTROPHILS PERCENT AUTO 86.5 % (41.0-71.0); PLATELET COUNT,PLT 149 K/mm3 (150-400); RED BLOOD CELL COUNT 5.67 M/mm3 (4.10-5.30); WHITE BLOOD CELL COUNT,WBC 4.95 K/mm3 (3.9-11.3)
[2023-09-11 10:23] LABS: A/G RATIO 0.7 (1-2); ALBUMIN 3.1 g/dl (3.4-5.0); ANION GAP 12.7 (5-15); BILIRUBIN TOTAL 0.6 mg/dL (0.2-1.0); BUN/CREATININE RATIO 12.5 (14-18); CALCIUM 8.4 mg/dL (8.5-10.1); CREATININE 0.8 mg/dL (0.55-1.02); EST CRCL DRUG DOSING (CG) 66.45 mL/min; MAGNESIUM 2.2 mg/dL (1.8-2.4); POTASSIUM,K 3.7 mEq/L (3.5-5.1); PROTEIN TOTAL,TP 7.4 g/dl (6.4-8.2)
[2023-09-11] MEDS: Sodium Chloride 0.9% 1,000 ML IV ONE (10:33)
[2023-09-11 12:00] LABS: CORONAVIRUS COVID-19 NAA NEGATIVE (NEGATIVE); INFLUENZA A NAA NEGATIVE (NEGATIVE); RESPIRATORY SYNCYTIAL VIR NAA NEGATIVE (NEGATIVE)
[2023-09-11 14:55] VITALS: BP 144/89; PULSE 103
== END 2023-09-11 14:50 | disposition left against medical advice (07) ==
LOC: JD.ED 08:52
DX: R50.9 Fever, unspecified (principal); R06.02 Shortness of breath; R05.9 Cough, unspecified; J45.909 Unspecified asthma, uncomplicated; F17.210 Nicotine dependence, cigarettes, uncomplicated
CPT/HCPCS: 0241U; 36415; 70450; 71045; 73562; 76705; 80053; 83605; 83690; 83735; 85025; 87040; 93005; 96360; 99284; J3490; J7030; 93010; 99283

== ENCOUNTER 2023-10-04 20:58 | Emergency (ER) | payer MEDICAID ==
[2023-10-04 23:38] VITALS: BP 123/45; PULSE 87
== END 2023-10-04 23:38 | disposition home or self-care (01) ==
LOC: JD.ED 20:58
DX: S83.92XA Sprain of unspecified site of left knee, initial encounter (principal); F17.210 Nicotine dependence, cigarettes, uncomplicated; Z79.899 Other long term (current) drug therapy; X50.1XXA Overexertion from prolonged static or awkward postures, initial encounter
CPT/HCPCS: 73562-26-LT; 73562-LT; 99282; 99283

== ENCOUNTER 2023-10-16 06:19 | Emergency (ER) | payer MEDICAID ==
[2023-10-16] MEDS: Sodium Chloride 0.9% 1,000 ML IV ONE (07:14)
[2023-10-16] MEDS: Sodium Chloride 0.9% 10 ML Syringe FLUSH PRN ×2 (07:14→08:31)
[2023-10-16] MEDS: HYDROmorphone 0.5 MG/0.5 ML Syringe IVPUSH ONE (07:14)
[2023-10-16 07:30] LABS: BASOPHILS PERCENT AUTO 0.6 % (0.0-1.0); EOSINOPHILS ABSOLUTE AUTO 0.2 K/mm3 (0.0-0.4); EOSINOPHILS PERCENT AUTO 2.5 % (0.0-6.0); HEMATOCRIT 46.7 % (37.0-47.0); HEMOGLOBIN 14.8 gm/dl (12.0-16.0); IMMATURE GRAN ABSOLUTE AUTO 0.03 K/mm3 (0.00-0.05); IMMATURE GRAN PERCENT AUTO 0.4 % (0.0-0.4); LYMPHOCYTES ABSOLUTE AUTO 1.7 K/mm3 (1.0-4.8); LYMPHOCYTES PERCENT AUTO 24.4 % (24.0-44.0); MEAN CORPUSCULAR HEMOGLOBIN 27.5 pg (28.0-32.0); MEAN CORPUSCULAR HGB CONC 31.7 g/dl (32.0-36.0); MEAN CORPUSCULAR VOLUME 86.8 fl (83.0-99.0); MEAN PLATELET VOLUME 9.7 fl (9.4-12.3); MONOCYTES ABSOLUTE AUTO 0.5 K/mm3 (0.0-0.8); NEUTROPHILS ABSOLUTE AUTO 4.6 K/mm3 (1.8-7.7); NEUTROPHILS PERCENT AUTO 65.1 % (41.0-71.0); PLATELET COUNT,PLT 223 K/mm3 (150-400); RED BLOOD CELL COUNT 5.38 M/mm3 (4.10-5.30); WHITE BLOOD CELL COUNT,WBC 7.13 K/mm3 (3.9-11.3)
[2023-10-16 08:15] LABS: A/G RATIO 0.8 (1-2); ALBUMIN 3.2 g/dl (3.4-5.0); ANION GAP 10.6 (5-15); BILIRUBIN TOTAL 0.3 mg/dL (0.2-1.0); BUN/CREATININE RATIO 18.8 (14-18); CREATININE 0.8 mg/dL (0.55-1.02); EST CRCL DRUG DOSING (CG) 66.45 mL/min; POTASSIUM,K 4.6 mEq/L (3.5-5.1); PROTEIN TOTAL,TP 7.1 g/dl (6.4-8.2)
[2023-10-16] MEDS: Iopamidol 612 MG/ML 100 ML Bottle IVPUSH ONE (08:31)
[2023-10-16 08:43] LABS: CALCIUM 9.2 mg/dL (8.5-10.1)
[2023-10-16 08:49] LABS: APPEARANCE,URINE CLEAR (Clear); BILIRUBIN,URINE NEGATIVE (Negative); COLOR,URINE YELLOW (Yellow); GLUCOSE,URINE NEGATIVE (Negative); KETONES,URINE NEGATIVE (Negative); LEUKOCYTE ESTERASE,URINE NEGATIVE (Negative); NITRITE,URINE NEGATIVE (Negative); OCCULT BLOOD,URINE NEGATIVE (Negative); PROTEIN,URINE NEGATIVE (Negative); UROBILINOGEN,URINE 0.2 (0.2-1.0)
[2023-10-16 10:24] VITALS: BP 117/79; PULSE 76
== END 2023-10-16 10:24 | disposition home or self-care (01) ==
LOC: JD.ED 06:19
DX: R10.84 Generalized abdominal pain (principal); J45.909 Unspecified asthma, uncomplicated
CPT/HCPCS: 36415; 74177; 80053; 81003; 83605; 83690; 85025; 96361; 96374; 99284; J1170; J3490; J7030; Q9967

== ENCOUNTER 2024-02-19 16:01 | Emergency (ER) | payer MEDICAID ==
[2024-02-19 22:28] VITALS: BP 169/83; PULSE 97
== END 2024-02-20 00:28 | disposition home or self-care (01) ==
LOC: JD.ED 16:01
DX: M54.16 Radiculopathy, lumbar region (principal); J45.909 Unspecified asthma, uncomplicated; F17.210 Nicotine dependence, cigarettes, uncomplicated; Z79.51 Long term (current) use of inhaled steroids; Z79.899 Other long term (current) drug therapy
CPT/HCPCS: 72131; 72131-26; 99284

== ENCOUNTER 2024-03-03 12:16 | Emergency (ER) | payer MEDICAID ==
[2024-03-03 12:48] LABS: BASOPHILS PERCENT AUTO 0.4 % (0.0-1.0); EOSINOPHILS ABSOLUTE AUTO 0.1 K/mm3 (0.0-0.4); EOSINOPHILS PERCENT AUTO 1.7 % (0.0-6.0); HEMATOCRIT 48.9 % (37.0-47.0); HEMOGLOBIN 15.6 gm/dl (12.0-16.0); IMMATURE GRAN ABSOLUTE AUTO 0.04 K/mm3 (0.00-0.05); IMMATURE GRAN PERCENT AUTO 0.6 % (0.0-0.4); LYMPHOCYTES PERCENT AUTO 14.3 % (24.0-44.0); MEAN CORPUSCULAR HEMOGLOBIN 27.3 pg (28.0-32.0); MEAN CORPUSCULAR HGB CONC 31.9 g/dl (32.0-36.0); MEAN CORPUSCULAR VOLUME 85.5 fl (83.0-99.0); MEAN PLATELET VOLUME 9.2 fl (9.4-12.3); MONOCYTES ABSOLUTE AUTO 0.5 K/mm3 (0.0-0.8); MONOCYTES PERCENT AUTO 7.1 % (0.0-8.0); NEUTROPHILS ABSOLUTE AUTO 5.5 K/mm3 (1.8-7.7); NEUTROPHILS PERCENT AUTO 75.9 % (41.0-71.0); PLATELET COUNT,PLT 184 K/mm3 (150-400); RED BLOOD CELL COUNT 5.72 M/mm3 (4.10-5.30)
[2024-03-03 13:27] LABS: A/G RATIO 0.8 (1-2); ALANINE AMINOTRANSFERASE,ALT 47 U/L (14-59); ALBUMIN 3.3 g/dl (3.4-5.0); ALKALINE PHOSPHATASE 102 U/L (46-116); ANION GAP 11.8 (5-15); ASPARTATE AMNIOTRANSFERASE,AST 26 U/L (15-37); BILIRUBIN TOTAL 0.3 mg/dL (0.2-1.0); BLOOD UREA NITROGEN,BUN 9 mg/dL (7-18); CALCIUM 8.5 mg/dL (8.5-10.1); CARBON DIOXIDE,CO2 29 mEq/L (21-32); CHLORIDE,CL 98 mEq/L (98-107); CREATININE 0.9 mg/dL (0.55-1.02); ESTIMATED GFR 72 mL/min (>60); GLUCOSE RANDOM 103 mg/dL (70-99); POTASSIUM,K 3.8 mEq/L (3.5-5.1); PROTEIN TOTAL,TP 7.7 g/dl (6.4-8.2); SODIUM,NA 135 mEq/L (136-145); TROPONIN I HIGH SENSITIVITY 13 pg/mL (<=51)
[2024-03-03] MEDS: Sodium Chloride 0.9% 500 ML IV ONE (14:31)
[2024-03-03] MEDS: Albuterol/Ipratropium 3.0-0.5 MG/3 ML Neb Soln NEB ONE (15:47)
[2024-03-03 21:18] VITALS: BP 152/76; PULSE 90
== END 2024-03-03 16:30 | disposition home or self-care (01) ==
LOC: JD.ED 12:16
DX: J06.9 Acute upper respiratory infection, unspecified (principal); F17.210 Nicotine dependence, cigarettes, uncomplicated; J45.909 Unspecified asthma, uncomplicated; Z79.899 Other long term (current) drug therapy
CPT/HCPCS: 36415; 71045; 80053; 83880; 84484; 85025; 87428; 93005; 94640; 96360; 96361; 99285; J7030; 93010; 99283; J7620-GY

== ENCOUNTER 2024-03-22 17:57 | Emergency (ER) | payer MEDICAID ==
[2024-03-22 18:18] VITALS: BP 148/94; PULSE 104
[2024-03-22 18:58] LABS: BASOPHILS PERCENT AUTO 0.4 % (0.0-1.0); EOSINOPHILS ABSOLUTE AUTO 0.2 K/mm3 (0.0-0.4); EOSINOPHILS PERCENT AUTO 2.1 % (0.0-6.0); HEMATOCRIT 46.8 % (37.0-47.0); IMMATURE GRAN ABSOLUTE AUTO 0.02 K/mm3 (0.00-0.05); IMMATURE GRAN PERCENT AUTO 0.3 % (0.0-0.4); LYMPHOCYTES ABSOLUTE AUTO 2.2 K/mm3 (1.0-4.8); LYMPHOCYTES PERCENT AUTO 28.6 % (24.0-44.0); MEAN CORPUSCULAR HEMOGLOBIN 27.5 pg (28.0-32.0); MEAN CORPUSCULAR HGB CONC 32.1 g/dl (32.0-36.0); MEAN CORPUSCULAR VOLUME 85.9 fl (83.0-99.0); MEAN PLATELET VOLUME 9.7 fl (9.4-12.3); MONOCYTES ABSOLUTE AUTO 0.4 K/mm3 (0.0-0.8); MONOCYTES PERCENT AUTO 5.2 % (0.0-8.0); NEUTROPHILS ABSOLUTE AUTO 4.9 K/mm3 (1.8-7.7); NEUTROPHILS PERCENT AUTO 63.4 % (41.0-71.0); PLATELET COUNT,PLT 229 K/mm3 (150-400); RED BLOOD CELL COUNT 5.45 M/mm3 (4.10-5.30); WHITE BLOOD CELL COUNT,WBC 7.65 K/mm3 (3.9-11.3)
[2024-03-22] MEDS: methylPREDNISolone Sodium Succinate 125 MG/2 ML SDV IVPUSH ONE (18:58)
[2024-03-22 19:18] LABS: INR 0.96; PROTHROMBIN TIME 10.2 SECONDS (9.7-12.0)
[2024-03-22 19:20] LABS: PTT,PARTIAL THROMBOPLSTIN TIME 29.3 SECONDS (21.7-31.4)
[2024-03-22 19:25] LABS: A/G RATIO 0.8 (1-2); ALBUMIN 3.3 g/dl (3.4-5.0); ANION GAP 9.6 (5-15); BILIRUBIN TOTAL 0.2 mg/dL (0.2-1.0); CALCIUM 9.1 mg/dL (8.5-10.1); EST CRCL DRUG DOSING (CG) 48.25 mL/min; POTASSIUM,K 3.6 mEq/L (3.5-5.1); PROTEIN TOTAL,TP 7.4 g/dl (6.4-8.2)
[2024-03-22] MEDS: Sodium Chloride 0.9% 10 ML Syringe FLUSH PRN (19:58)
[2024-03-22] MEDS: Sodium Chloride 0.9% 100 ML IV SCH (19:58)
[2024-03-22] MEDS: Iopamidol 755 Mg/ML 100 ML Bottle IVPUSH ONE (19:58)
== END 2024-03-22 22:42 | disposition left against medical advice (07) ==
LOC: JD.ED 17:57
DX: M54.50 Low back pain, unspecified (principal); R29.898 Other symptoms and signs involving the musculoskeletal system; R20.2 Paresthesia of skin; J45.909 Unspecified asthma, uncomplicated; F17.210 Nicotine dependence, cigarettes, uncomplicated; Z79.82 Long term (current) use of aspirin; Z79.899 Other long term (current) drug therapy; Z86.16 Personal history of COVID-19
CPT/HCPCS: 36415; 70450; 70496; 70498; 72131; 80053; 84484; 85025; 85610; 85730; 93005; 96374; 99285; J2919; Q9967; 93010; 99284

== ENCOUNTER 2024-03-28 15:08 | Emergency (ER) | payer MEDICAID ==
[2024-03-28] MEDS ORDERED: Sodium Chloride 0.9% 10 ML Syringe FLUSH PRN (15:18)
[2024-03-28 16:13] LABS: BASOPHILS PERCENT AUTO 0.3 % (0.0-1.0); EOSINOPHILS ABSOLUTE AUTO 0.1 K/mm3 (0.0-0.4); EOSINOPHILS PERCENT AUTO 1.4 % (0.0-6.0); HEMOGLOBIN 14.5 gm/dl (12.0-16.0); IMMATURE GRAN ABSOLUTE AUTO 0.06 K/mm3 (0.00-0.05); IMMATURE GRAN PERCENT AUTO 0.7 % (0.0-0.4); LYMPHOCYTES ABSOLUTE AUTO 2.5 K/mm3 (1.0-4.8); LYMPHOCYTES PERCENT AUTO 27.3 % (24.0-44.0); MEAN CORPUSCULAR HEMOGLOBIN 27.8 pg (28.0-32.0); MEAN CORPUSCULAR HGB CONC 31.5 g/dl (32.0-36.0); MEAN CORPUSCULAR VOLUME 88.1 fl (83.0-99.0); MEAN PLATELET VOLUME 9.6 fl (9.4-12.3); MONOCYTES ABSOLUTE AUTO 0.6 K/mm3 (0.0-0.8); MONOCYTES PERCENT AUTO 6.8 % (0.0-8.0); NEUTROPHILS ABSOLUTE AUTO 5.8 K/mm3 (1.8-7.7); NEUTROPHILS PERCENT AUTO 63.5 % (41.0-71.0); PLATELET COUNT,PLT 221 K/mm3 (150-400); RED BLOOD CELL COUNT 5.22 M/mm3 (4.10-5.30); WHITE BLOOD CELL COUNT,WBC 9.08 K/mm3 (3.9-11.3)
[2024-03-28 16:24] VITALS: PULSE 100
[2024-03-28 16:30] LABS: INR 0.98; PROTHROMBIN TIME 10.4 SECONDS (9.7-12.0)
[2024-03-28 16:32] LABS: PTT,PARTIAL THROMBOPLSTIN TIME 27.2 SECONDS (21.7-31.4)
[2024-03-28 16:39] LABS: A/G RATIO 0.8 (1-2); ALBUMIN 2.8 g/dl (3.4-5.0); ANION GAP 8.2 (5-15); BILIRUBIN TOTAL 0.2 mg/dL (0.2-1.0); CALCIUM 8.5 mg/dL (8.5-10.1); CREATININE 0.8 mg/dL (0.55-1.02); EST CRCL DRUG DOSING (CG) 65.61 mL/min; POTASSIUM,K 3.2 mEq/L (3.5-5.1); PROTEIN TOTAL,TP 6.4 g/dl (6.4-8.2)
[2024-03-28] MEDS: Iopamidol 755 Mg/ML 100 ML Bottle IVPUSH ONE (16:45)
[2024-03-28] MEDS: Sodium Chloride 0.9% 100 ML IV SCH (16:45)
[2024-03-28] MEDS: Sodium Chloride 0.9% 10 ML Syringe FLUSH ONE (16:45)
[2024-03-28] MEDS: Aspirin 81 MG Tab.Chew PO ONE (17:03)
[2024-03-28] MEDS: Potassium Chloride 20 MEQ Tab.ER PO ONE (17:36)
[2024-03-28 20:05] VITALS: BP 135/83
== END 2024-03-28 18:56 ==
LOC: JD.ED 15:08
DX: I63.9 Cerebral infarction, unspecified (principal); I10 Essential (primary) hypertension; J45.909 Unspecified asthma, uncomplicated; F17.210 Nicotine dependence, cigarettes, uncomplicated; Z86.16 Personal history of COVID-19; Z79.51 Long term (current) use of inhaled steroids; Z79.82 Long term (current) use of aspirin
CPT/HCPCS: 36415; 70450; 70450-26; 70496; 70496-26; 70498; 70498-26; 72131; 72131-26; 80053; 84484; 85025; 85610; 85730; 93005; 99285; A9270-GY; Q9967

== ENCOUNTER 2025-01-01 12:20 | Emergency (ER) | payer MEDICAID ==
[2025-01-01] MEDS: Acetaminophen/oxyCODONE 325-5 MG Tab PO ONE (13:08)
[2025-01-01] MEDS: Ketorolac 60 MG/2 ML SDV IM ONE (13:08)
[2025-01-01 13:40] VITALS: BP 144/92; PULSE 84
== END 2025-01-01 13:44 | disposition home or self-care (01) ==
LOC: JD.ED 12:20
DX: S52.501A Unspecified fracture of the lower end of right radius, initial encounter for closed fracture (principal); I10 Essential (primary) hypertension; J45.909 Unspecified asthma, uncomplicated; Z79.899 Other long term (current) drug therapy; Z86.16 Personal history of COVID-19; W19.XXXA Unspecified fall, initial encounter
CPT/HCPCS: 29125; 73110; 96372; 99284; A9270; J1885